=== PATIENT | male | born 1980 | race Two or more races ===

== ENCOUNTER 2024-10-06 06:45 | Day surgery (SDC) | payer MEDICAID, SELFPAY ==
[2024-10-03 13:19] VITALS: BMI 22.8
[2024-10-06] VITALS (8 sets, daily range): BP systolic 124–167; BP diastolic 89–104; PULSE 46–62; RESP 10–19; TEMP 36.4–36.6; O2SAT 93–100; BMI 37.0
[2024-10-06] MEDS: SODIUM CHLORIDE 0.9% 500 ML 500 ML 20 ML IV (07:48)
[2024-10-06] MEDS: SIMETHICONE 40 MG/0.6 ML ORAL SYRINGE PO (07:50)
[2024-10-06] MEDS: DiphenhydrAMINE INJ 50 MG/ML VIAL 25 MG IV (07:51)
[2024-10-06] MEDS: MIDAZOLAM INJ 1 MG/ML VIAL 2 ML (ASD USE ONLY) 2 MG IV (07:51)
[2024-10-06] MEDS: fentaNYL CIT INJ 50 mCg/ML AMP 2ML (ASD USE ONLY) IV (07:55)
--- NOTE | 2024-10-06 08:06 | SUR.PHASEII ---
PT ARRIVED TO PACU, ABLE TO FOLLOW SIMPLE COMMANDS AND DRIFTED BACK TO SLEEP. NO ACUTE DISTRESS NOTED.
--- NOTE | 2024-10-06 08:25 | SUR.PHASEII ---
PT HAS BEEN PASSING FLATUS. PT IS MORE AWAKE WITH NO C/O DISTRESS.
--- NOTE | 2024-10-06 08:30 | SUR.PHASEII ---
PT SITTING UP IN THE GURNEY AND TOLERATING ORAL FLUID INTAKE.
== END 2024-10-06 08:53 | disposition home or self-care (01) ==
PROVIDERS: PCP Physician Assistant; Referring Provider Surgery; Visit Provider Surgery
PROC: 0DBE8ZX Excision of Large Intestine, Via Natural or Artificial Opening Endoscopic, Diagnostic (ICD-10-PCS; CPT 45380; principal; 2024-10-06 08:00)
DX: Z12.11 Encounter for screening for malignant neoplasm of colon (principal); K64.0 First degree hemorrhoids
CPT/HCPCS: 45378; J1200; J2250; J3010; J7040; A9270